=== PATIENT | male | born 1945 | race Caucasian/White ===

== ENCOUNTER 2019-10-21 14:54 | Inpatient (IN) | payer MEDICARE ==
[~2019-10-21] VITALS: Ht 177.8 cm; Wt 98.5 kg
[~2019-10-21 14:54] MED LIST: ALBU0.63 IH; ASPI-556 PO; ATOR10TA69 PO; BENA20TA10 PO; EZET10TA13 PO; HYDR25TA PO; METF-444 PO; METO-391 PO; WARF-57 PO
[2019-10-21] MEDS ORDERED: GLUCAGON 1MG KIT 1 MG ML IM PRN (15:45)
[2019-10-21] MEDS ORDERED: DEXTROSE 50%-WATER 50 ML DISP.SYRIN IV PRN (15:45)
[2019-10-21] MEDS ORDERED: VANCOMYCIN PROTOCOL PER PHARMACY IV SCH (15:45)
[2019-10-21] MEDS ORDERED: ACETAMINOPHEN 325 MG TAB PO PRN (15:45)
[2019-10-21 15:49] LABS: BASOPHILS % (AUTO) 0.2 % (0.0-5.0); EOSINOPHILS % (AUTO) 1.9 % (0.0-8.0); LYMPHOCYTES % (AUTO) 23.3 % (21.0-51.0); MEAN CORPUSCULAR HEMOGLOBIN 27.4 pg (27.0-33.0); MEAN CORPUSCULAR HGB CONC 32.2 g/dL (32.0-36.0); MEAN CORPUSCULAR VOLUME 85.2 fL (79-99); MONOCYTES % (AUTO) 9.6 % (3.0-13.0); NEUTROPHILS % (AUTO) 64.5 % (40.0-77.0); PLATELET COUNT (AUTO) 172 K/uL (130-400); RED BLOOD CELL COUNT(AUTO) 3.17 MIL/uL (4.50-6.20); RED CELL DISTRIBUTION WIDTH 15.5 % (11.0-15.5); WHITE BLOOD COUNT (AUTO) 8.3 K/uL (4.8-10.8)
[2019-10-21] MEDS ORDERED: COMPOUND IV REFRIGERATED 1 EACH IVSOLN MISC PRN (16:00)
[2019-10-21] MEDS ORDERED: VANCOMYCIN 1.5 GM in SODIUM CHLORIDE 0.9% 250 ML IV SCH (16:00)
[2019-10-21 16:19] LABS: CREATININE 1.8 mg/dL (0.5-1.5); POTASSIUM 4.3 mmol/L (3.5-5.1)
[2019-10-21 16:24] LABS: ALBUMIN 2.6 g/dL (3.5-5.0); BILIRUBIN,TOTAL 0.3 mg/dL (0.2-1.0); TOTAL PROTEIN, SERUM 6.1 g/dL (6.0-8.3)
[2019-10-21] MEDS: INSULIN HUMULIN R 100 UNIT/ML 3ML SQ SCH ×2 (16:30→21:00)
[2019-10-21] MEDS ORDERED: PHARMACY COMMUNICATION MISC SCH (16:45)
[2019-10-21] MEDS ORDERED: GENTAMICIN PROTOCOL PER PHARMACY IV SCH (16:45)
[2019-10-21 16:47] LABS: INR 2.41 (0.85-1.15); PARTIAL THROMBOPLASTIN TIME 34.4 SEC (26.3-35.5); PROTHROMBIN TIME 25.2 SEC (9.6-11.6)
--- NOTE | 2019-10-21 17:15 | NUR ---
PT ARRIVED TO UNIT AT 1711. PT IS AAO X3. DENIES ANY PAIN. VITALS STABLE. BED LOCKED AND LOW WITH CALL LIGHT IN REACH WILL CONTINUE TO MONITOR PT.
[2019-10-21 17:20] VITALS: BP 110/43
[2019-10-21] MEDS ORDERED: GENTAMICIN SULFATE 140 MG in SODIUM CHLORIDE 0.9% 100 ML IV SCH (17:30)
[2019-10-21 17:35] LABS: CRP QUANTITATIVE 14.3 mg/L (0.00-9.0)
[2019-10-21] MEDS ORDERED: LEVO500T89 PO (19:03)
[2019-10-21] MEDS ORDERED: AMIO200T6 PO (19:03)
[2019-10-21] MEDS ORDERED: METO50TA18 PO (19:03)
[2019-10-21] MEDS ORDERED: WARF3TAB59 PO (19:04)
--- NOTE | 2019-10-21 19:06 | NUR ---
Spoke with Dr. Dill to clarify, pt is to be NPO after MN, but no orders for surgery. Dr. Dill stated he would see pt later tonight and would give orders for surgical procedure based on MRI results. MRI still pending to be done. No answer when called to MRI dept. Notified Melissa of radiology department who stated MRI is closed for tonight, would need to be ordered as stat. Endorsed to oncoming nurse Amy to contact Dr. Dill if wants to change to stat.
[2019-10-21 20:00] VITALS: BP 105/51
--- NOTE | 2019-10-21 20:10 | NUR ---
CALLED DR HONG VIA CP AND VERIFIED ANTIBIOTIC ORDERS AND ASKED IF MRI OF RT FOOT COULD BE DONE IN AM. NEW ORDERS GIVEN, PLEASE REFER TO CPOE.
--- NOTE | 2019-10-21 20:25 | NUR ---
MOBILE SALES CONSULTANT PAGED KITTY TONY, BUTTONHOLE TACKER FOR HOSPITALIST, VIA ANSWERING SERVICE AND MADE AWARE OF DR HONG'S ORDERS TO [facility] NO. ORDERED OKAY TO [facility] NO INFECTIOUS DISEASE MD WILL SEE PT IN AM.
[2019-10-21] MEDS: AMIODARONE HCL 200 MG TABLET PO SCH (22:09)
[2019-10-21] MEDS: EZETIMIBE 10 MG TAB PO SCH (22:09)
[2019-10-21] MEDS: ATORVASTATIN CALCIUM 20 MG TABLET PO SCH (22:09)
[2019-10-21] MEDS: METOPROLOL TARTRATE 50 MG TAB PO SCH (22:09)
--- NOTE | 2019-10-21 22:10 | NUR ---
MEDS SHIFT ASSESSMENT DONE, PLEASE REFER TO CHART. DUE MEDS ADMINISTERED, TOLERATED WELL. INFORMED THAT MRI WILL BE DONE IN AM. KEPT RESTED AND COMFORTABLE IN BED. CALL LIGHT WITHIN REACH. Addendum: 10/22/19 at 0040 by KAVON JUAREZ RN RN Amended: Links added.
--- NOTE | 2019-10-21 23:00 | NUR ---
MD DR HONG IN TO SEE PT. NEW ORDERS GIVEN. PLEASE REFER TO CPOE. RESOURCE NURSE INFORMED OF SX TO BE SCHEDULED TOMORROW PM PER .
--- NOTE | 2019-10-21 23:10 | NUR ---
WOUND DR HONG IN TO TALK TO PT ABOUT SX TOMORROW. CHANGED DRESSING TO RT FOOT.
[2019-10-22] VITALS (27 sets, daily range): BP systolic 92–138; BP diastolic 43–63
--- NOTE | 2019-10-22 00:10 | NUR ---
CONSENT PT VERBALIZES UNDERSTANDING OF SX TO BE DONE IN AM EXPLAINED BY . PT SIGNED CONSENT FOR SX IN AM, WITNESSED BY HOG COOLER. CONSENT PLACED IN CHART.
--- NOTE | 2019-10-22 02:00 | NUR ---
ROUNDS PT RESTING WELL, FAIRLY ASLEEP. NO DISTRESS NOTED. KEPT RESTED AND COMFORTABLE IN BED. CALL LIGHT WITHIN REACH. WILL MONITOR PT.
--- NOTE | 2019-10-22 03:00 | NUR ---
WOUND PT CLAIMS OF TIGHTNESS ON RT FOOT DRESSING. LOOSENED LINSEY WRAP BY PCP BUT STILL CLAIMS IT IS TIGHT. REMOVED DRESSING. PICTURE OF WOUND TAKEN. DRESSING CHANGED, BETADINE CAST APPLIED DONE BY LAST NIGHT. ELEVATED RT FOOT IN BED.
--- NOTE | 2019-10-22 05:00 | NUR ---
BATHE BED BATH DONE BY PCP. PT TOLERATED ACTIVITY WELL. RE-ITERATED TO BE NPO AFTER BREAKFAST. VERBALIZES UNDERSTANDING. FOR MORE CARE.
[2019-10-22 05:56] LABS: BASOPHILS % (AUTO) 0.3 % (0.0-5.0); EOSINOPHILS % (AUTO) 2.3 % (0.0-8.0); HEMATOCRIT 26.8 % (42-54); LYMPHOCYTES % (AUTO) 27.5 % (21.0-51.0); MEAN CORPUSCULAR HEMOGLOBIN 27.8 pg (27.0-33.0); MEAN CORPUSCULAR HGB CONC 32.8 g/dL (32.0-36.0); MEAN CORPUSCULAR VOLUME 84.5 fL (79-99); MONOCYTES % (AUTO) 9.2 % (3.0-13.0); NEUTROPHILS % (AUTO) 60.2 % (40.0-77.0); PLATELET COUNT (AUTO) 190 K/uL (130-400); RED BLOOD CELL COUNT(AUTO) 3.17 MIL/uL (4.50-6.20); RED CELL DISTRIBUTION WIDTH 15.6 % (11.0-15.5); WHITE BLOOD COUNT (AUTO) 9.1 K/uL (4.8-10.8)
[2019-10-22] MEDS: INSULIN HUMULIN R 100 UNIT/ML 3ML SQ SCH ×4 (05:58→20:46)
[2019-10-22 06:13] LABS: CREATININE 1.7 mg/dL (0.5-1.5)
[2019-10-22 06:20] LABS: INR 2.13 (0.85-1.15); PARTIAL THROMBOPLASTIN TIME 32.2 SEC (26.3-35.5); PROTHROMBIN TIME 22.3 SEC (9.6-11.6)
[2019-10-22] MEDS: AMIODARONE HCL 200 MG TABLET PO SCH ×2 (08:02→19:42)
[2019-10-22] MEDS: FAMOTIDINE 20MG TAB 20 MG TAB PO SCH (08:02)
[2019-10-22] MEDS: METOPROLOL TARTRATE 50 MG TAB PO SCH ×2 (08:02→19:42)
[2019-10-22] MEDS ORDERED: BENAZEPRIL HCL 10 MG TABLET PO SCH (09:00)
[2019-10-22] MEDS ORDERED: ENOXAPARIN SODIUM 30 MG/0.3 ML SQ SCH (09:00)
[2019-10-22 09:27] LABS: % IRON SATURATION 20.3 % (30-44)
[2019-10-22] MEDS ORDERED: GENTAMICIN PROTOCOL PER PHARMACY IV SCH (11:45)
[2019-10-22] MEDS: MEROPENEM 1 GM VIAL IVP SCH ×2 (12:56→22:40)
[2019-10-22] MEDS ORDERED: FENTANYL CITRATE PF 50 MCG/1 ML 2ML VIAL ONE ×2 (15:10→15:45)
[2019-10-22] MEDS ORDERED: MIDAZOLAM HCL 1 MG/ML 2ML VIAL ONE ×2 (15:10→15:45)
[2019-10-22] MEDS ORDERED: LIDOCAINE HCL 1% 20 ML VIAL ONE (15:17)
[2019-10-22] MEDS ORDERED: BUPIVACAINE/PF 0.5% 30ML VIAL ONE (15:17)
[2019-10-22] MEDS ORDERED: EPHEDRINE SULFATE 50 MG/ML AMPULE ONE (16:10)
[2019-10-22] MEDS ORDERED: COMPOUND IV REFRIGERATED 1 EACH IVSOLN MISC PRN (16:30)
[2019-10-22] MEDS ORDERED: SODIUM CHLORIDE 0.9% 1000ML 1,000 ML IV ONE (18:07)
--- NOTE | 2019-10-22 18:20 | NUR ---
PT ARRIVED TO UNIT POST-OP. VITAL SIGNS STABLE. PT DENIES PAIN AT THIS TIME. DRESSING TO RT FOOT DRY AND INTACT. WILL CONTINUE TO MONITOR. BED LOCKED AND LOW, SIDE RAILS X2 WITH CALL LIGHT IN REACH.
[2019-10-22] MEDS: MORPHINE SULFATE 2 MG/ML 1ML SYG IVP PRN ×2 (19:40→23:44)
[2019-10-22] MEDS: GENTAMICIN SULFATE 150 MG in SODIUM CHLORIDE 0.9% 100 ML IV SCH (19:41)
[2019-10-22] MEDS: ATORVASTATIN CALCIUM 20 MG TABLET PO SCH (19:42)
[2019-10-22] MEDS: EZETIMIBE 10 MG TAB PO SCH (19:42)
[2019-10-22] MEDS ORDERED: HYDRALAZINE HCL 20 MG/ML VIAL IV PRN (23:30)
[2019-10-23] MEDS: MORPHINE SULFATE 2 MG/ML 1ML SYG IVP PRN ×4 (02:54→20:18)
[2019-10-23] MEDS ORDERED: HYDROCODONE/ACETAMINOPHEN 5/325 MG TAB PO PRN (03:15)
[2019-10-23] MEDS ORDERED: HYDROMORPHONE 4MG/ML 1ML VIAL IVP PRN (03:15)
[2019-10-23 03:40] VITALS: BP 112/56
[2019-10-23] MEDS: GENTAMICIN SULFATE 150 MG in SODIUM CHLORIDE 0.9% 100 ML IV SCH ×2 (05:24→17:22)
[2019-10-23] MEDS: INSULIN HUMULIN R 100 UNIT/ML 3ML SQ SCH ×4 (05:47→20:22)
--- NOTE | 2019-10-23 06:45 | NUR ---
dressing on right foot has mild blood. changed loosely (kerlex, tape, white wrap)
[2019-10-23 08:02] VITALS: BP 104/59
[2019-10-23 08:44] LABS: BASOPHILS % (AUTO) 0.3 % (0.0-5.0); EOSINOPHILS % (AUTO) 1.7 % (0.0-8.0); HEMATOCRIT 27.3 % (42-54); LYMPHOCYTES % (AUTO) 14.5 % (21.0-51.0); MEAN CORPUSCULAR HEMOGLOBIN 27.1 pg (27.0-33.0); MEAN CORPUSCULAR HGB CONC 31.5 g/dL (32.0-36.0); MEAN CORPUSCULAR VOLUME 86.1 fL (79-99); MONOCYTES % (AUTO) 9.5 % (3.0-13.0); NEUTROPHILS % (AUTO) 73.4 % (40.0-77.0); PLATELET COUNT (AUTO) 190 K/uL (130-400); RED BLOOD CELL COUNT(AUTO) 3.17 MIL/uL (4.50-6.20); RED CELL DISTRIBUTION WIDTH 15.9 % (11.0-15.5); WHITE BLOOD COUNT (AUTO) 11.4 K/uL (4.8-10.8)
[2019-10-23 08:54] LABS: INR 1.84 (0.85-1.15); PARTIAL THROMBOPLASTIN TIME 32.9 SEC (26.3-35.5); PROTHROMBIN TIME 19.4 SEC (9.6-11.6)
[2019-10-23] MEDS: METOPROLOL TARTRATE 50 MG TAB PO SCH ×2 (10:04→20:18)
[2019-10-23] MEDS: AMIODARONE HCL 200 MG TABLET PO SCH ×2 (10:04→20:18)
[2019-10-23] MEDS: FAMOTIDINE 20MG TAB 20 MG TAB PO SCH (10:04)
[2019-10-23 11:38] VITALS: BP 110/65
[2019-10-23] MEDS: MEROPENEM 1 GM VIAL IVP SCH ×2 (11:51→22:58)
--- NOTE | 2019-10-23 13:30 | NUR ---
DCP CM spoke to pt's spouse Helene Hernandez discussed dcp. Pt is independent prior to admission, lives at home w/spouse. Pt has INR machine. Verbalized able to borrow shower chair, walker, wheelchair, cane from the [facility] [place]'re [facility] [place] in [place], [place]. Denies any other equipments/services. Feels safe to go back home, spouse able to assist with transportation and needs as necessary. DC plan to home once stable. CM to cont to follow up. Addendum: 10/23/19 at 1332 by PEGGY PERES LVN CM Amended: Links added.
[2019-10-23 16:51] VITALS: BP 149/75
[2019-10-23] MEDS: WARFARIN SODIUM 1 MG TAB PO SCH (17:11)
[2019-10-23] MEDS ORDERED: GUAIFENESIN-DM 200/20 MG 10 ML PO PRN (19:15)
[2019-10-23] MEDS ORDERED: GUAIFENESIN-CODEINE 5 ML SYRUP ONE (19:28)
[2019-10-23 20:09] VITALS: BP 126/62
[2019-10-23] MEDS: ATORVASTATIN CALCIUM 20 MG TABLET PO SCH (20:17)
[2019-10-23] MEDS: EZETIMIBE 10 MG TAB PO SCH (20:18)
[2019-10-23] MEDS: IPRATROPIUM/ALBUTEROL SULFATE 3 ML SOLUTION IH PRN (21:17)
[2019-10-23 23:40] VITALS: BP 116/71
[2019-10-24 03:37] VITALS: BP 110/63
[2019-10-24] MEDS: GENTAMICIN SULFATE 150 MG in SODIUM CHLORIDE 0.9% 100 ML IV SCH (05:33)
[2019-10-24] MEDS: INSULIN HUMULIN R 100 UNIT/ML 3ML SQ SCH ×4 (05:37→20:26)
[2019-10-24 05:43] LABS: BASOPHILS % (AUTO) 0.3 % (0.0-5.0); EOSINOPHILS % (AUTO) 0.2 % (0.0-8.0); HEMATOCRIT 25.3 % (42-54); LYMPHOCYTES % (AUTO) 16.4 % (21.0-51.0); MEAN CORPUSCULAR HEMOGLOBIN 27.8 pg (27.0-33.0); MEAN CORPUSCULAR HGB CONC 32.8 g/dL (32.0-36.0); MEAN CORPUSCULAR VOLUME 84.6 fL (79-99); MONOCYTES % (AUTO) 10.6 % (3.0-13.0); PLATELET COUNT (AUTO) 200 K/uL (130-400); RED BLOOD CELL COUNT(AUTO) 2.99 MIL/uL (4.50-6.20); RED CELL DISTRIBUTION WIDTH 15.8 % (11.0-15.5); WHITE BLOOD COUNT (AUTO) 12.5 K/uL (4.8-10.8)
[2019-10-24 05:57] LABS: CREATININE 1.7 mg/dL (0.5-1.5); GENTAMICIN,TROUGH 4.4 mcg/mL (0.0-2.0); POTASSIUM 4.6 mmol/L (3.5-5.1)
[2019-10-24 06:01] LABS: B-TYPE NATRIURETIC PEPTIDE 1230 pg/mL (0-100)
[2019-10-24] MEDS: IPRATROPIUM/ALBUTEROL SULFATE 3 ML SOLUTION IH PRN ×2 (06:16→18:23)
--- NOTE | 2019-10-24 06:18 | NUR ---
patient got a duoneb around 20:00 on 10/23/19 and again at 06:00 am today. he has a mild cough with no shortness of breath since he has been in bed all night. he gets short of breath on exertion since he has COPD.
[2019-10-24 07:45] VITALS: BP 90/49
[2019-10-24 08:32] LABS: INR 2.11 (0.85-1.15); PROTHROMBIN TIME 22.1 SEC (9.6-11.6)
[2019-10-24] MEDS: AMIODARONE HCL 200 MG TABLET PO SCH ×2 (08:37→20:22)
[2019-10-24] MEDS: FAMOTIDINE 20MG TAB 20 MG TAB PO SCH (08:39)
[2019-10-24] MEDS: METOPROLOL TARTRATE 50 MG TAB PO SCH ×2 (09:00→20:17)
--- NOTE | 2019-10-24 09:33 | NUR ---
DR. GRANDE AWARE OF CASE RE; RESP FAILURE POST OP AND ON AMIODORONE.
[2019-10-24 10:55] VITALS: BP 94/53
--- NOTE | 2019-10-24 12:00 | NUR ---
DR. JUARES AWARE OF CONSULT RE; F/U ON RLE BYPASS GRAFT.
[2019-10-24] MEDS: MEROPENEM 1 GM VIAL IVP SCH ×2 (13:11→22:34)
--- NOTE | 2019-10-24 14:45 | NUR ---
PATIENT IS ON PROCEDURE- ECHOCARDIOGRAM. will initiate PT Evaluation 10/25/2019. Addendum: 10/24/19 at 1447 by EMY HUTCHINSON, PT PT Amended: Links added.
[2019-10-24 15:48] VITALS: BP 110/59
[2019-10-24] MEDS: GENTAMICIN SULFATE 100 MG in SODIUM CHLORIDE 0.9% 100 ML IV SCH (17:04)
[2019-10-24] MEDS: WARFARIN SODIUM 1 MG TAB PO SCH (17:06)
[2019-10-24 20:10] VITALS: BP 98/59
[2019-10-24] MEDS: ATORVASTATIN CALCIUM 20 MG TABLET PO SCH (20:22)
[2019-10-24] MEDS: EZETIMIBE 10 MG TAB PO SCH (20:22)
[2019-10-24] MEDS: MORPHINE SULFATE 2 MG/ML 1ML SYG IVP PRN (22:34)
[2019-10-25 03:40] LABS: BASOPHILS % (AUTO) 0.2 % (0.0-5.0); EOSINOPHILS % (AUTO) 0.8 % (0.0-8.0); HEMATOCRIT 23.5 % (42-54); LYMPHOCYTES % (AUTO) 18.4 % (21.0-51.0); MEAN CORPUSCULAR HEMOGLOBIN 27.2 pg (27.0-33.0); MEAN CORPUSCULAR HGB CONC 32.3 g/dL (32.0-36.0); MEAN CORPUSCULAR VOLUME 84.2 fL (79-99); MONOCYTES % (AUTO) 11.6 % (3.0-13.0); NEUTROPHILS % (AUTO) 68.5 % (40.0-77.0); PLATELET COUNT (AUTO) 206 K/uL (130-400); RED BLOOD CELL COUNT(AUTO) 2.79 MIL/uL (4.50-6.20); RED CELL DISTRIBUTION WIDTH 15.9 % (11.0-15.5); WHITE BLOOD COUNT (AUTO) 11.1 K/uL (4.8-10.8)
[2019-10-25 03:55] LABS: INR 2.44 (0.85-1.15); PROTHROMBIN TIME 25.5 SEC (9.6-11.6)
[2019-10-25 04:00] VITALS: BP 110/58
[2019-10-25] MEDS: GENTAMICIN SULFATE 100 MG in SODIUM CHLORIDE 0.9% 100 ML IV SCH (04:52)
[2019-10-25 05:40] LABS: CREATININE 1.6 mg/dL (0.5-1.5); POTASSIUM 4.8 mmol/L (3.5-5.1)
[2019-10-25] MEDS: INSULIN HUMULIN R 100 UNIT/ML 3ML SQ SCH ×4 (06:19→20:28)
[2019-10-25] MEDS: IPRATROPIUM/ALBUTEROL SULFATE 3 ML SOLUTION IH PRN ×2 (06:26→18:29)
[2019-10-25] MEDS ORDERED: LACTULOSE 20 GM/30 ML UDCUP PO PRN (08:00)
[2019-10-25] MEDS: DOCUSATE SODIUM 100 MG CAP PO SCH (08:47)
[2019-10-25] MEDS: ASPIRIN 81MG TAB.CHEW PO SCH (08:48)
[2019-10-25] MEDS: METOPROLOL TARTRATE 50 MG TAB PO SCH ×2 (08:48→20:29)
[2019-10-25] MEDS: FAMOTIDINE 20MG TAB 20 MG TAB PO SCH (08:48)
[2019-10-25] MEDS: AMIODARONE HCL 200 MG TABLET PO SCH ×2 (08:48→20:29)
[2019-10-25 09:57] VITALS: BP_SYST 109; BP_SYST 157; BP_DIAS 43; BP_DIAS 85
[2019-10-25 10:38] LABS: INR 2.46 (0.85-1.15); PARTIAL THROMBOPLASTIN TIME 42.6 SEC (26.3-35.5); PROTHROMBIN TIME 25.7 SEC (9.6-11.6)
[2019-10-25 11:52] VITALS: BP 110/55
[2019-10-25] MEDS: MEROPENEM 1 GM VIAL IVP SCH (12:02)
[2019-10-25] MEDS ORDERED: DOCUSATE SODIUM 100 MG CAP PO PRN (12:45)
[2019-10-25] MEDS ORDERED: PHARMACY COMMUNICATION MISC SCH (13:00)
[2019-10-25] MEDS: WARFARIN SODIUM 1 MG TAB PO SCH (18:01)
[2019-10-25 18:14] VITALS: BP_SYST 116; BP_SYST 170; BP_DIAS 60; BP_DIAS 87
[2019-10-25] MEDS: LACTULOSE 20 GM/30 ML UDCUP PO PRN (18:15)
[2019-10-25] MEDS ORDERED: NYSTATIN 15 GM POWDER TP PRN (18:15)
[2019-10-25 20:00] VITALS: BP 109/62
[2019-10-25] MEDS: EZETIMIBE 10 MG TAB PO SCH (20:29)
[2019-10-25] MEDS: ATORVASTATIN CALCIUM 20 MG TABLET PO SCH (20:29)
[2019-10-25] MEDS: NYSTATIN 15 GM POWDER TP SCH ×2 (21:00→23:04)
[2019-10-26] VITALS: BP 128/60
[2019-10-26 03:35] VITALS: BP 107/63
[2019-10-26 05:24] LABS: BASOPHILS % (AUTO) 0.3 % (0.0-5.0); EOSINOPHILS % (AUTO) 1.7 % (0.0-8.0); HEMATOCRIT 26.9 % (42-54); LYMPHOCYTES % (AUTO) 19.5 % (21.0-51.0); MEAN CORPUSCULAR HEMOGLOBIN 27.2 pg (27.0-33.0); MEAN CORPUSCULAR VOLUME 85.1 fL (79-99); MONOCYTES % (AUTO) 8.1 % (3.0-13.0); NEUTROPHILS % (AUTO) 69.8 % (40.0-77.0); PLATELET COUNT (AUTO) 245 K/uL (130-400); RED BLOOD CELL COUNT(AUTO) 3.16 MIL/uL (4.50-6.20); RED CELL DISTRIBUTION WIDTH 15.7 % (11.0-15.5); WHITE BLOOD COUNT (AUTO) 12.7 K/uL (4.8-10.8)
[2019-10-26 05:35] LABS: PARTIAL THROMBOPLASTIN TIME 47.6 SEC (26.3-35.5)
[2019-10-26 05:41] LABS: CHOLESTEROL 87 mg/dL (<200); HDL CHOLESTEROL 39 mg/dL (29-71); LDL DIRECT 46 mg/dL (0-99); TRIGLYCERIDES 67 mg/dL (30-200)
[2019-10-26 05:45] LABS: INR 3.65 (0.85-1.15)
[2019-10-26 05:46] LABS: PROTHROMBIN TIME 37.5 SEC (9.6-11.6)
[2019-10-26] MEDS: INSULIN HUMULIN R 100 UNIT/ML 3ML SQ SCH ×4 (06:01→21:00)
[2019-10-26] MEDS: IPRATROPIUM/ALBUTEROL SULFATE 3 ML SOLUTION IH PRN ×2 (06:27→18:50)
[2019-10-26 08:00] VITALS: BP 116/67
[2019-10-26] MEDS: FAMOTIDINE 20MG TAB 20 MG TAB PO SCH (09:30)
[2019-10-26] MEDS: METOPROLOL TARTRATE 50 MG TAB PO SCH ×2 (09:30→21:03)
[2019-10-26] MEDS: ASPIRIN 81MG TAB.CHEW PO SCH (09:31)
[2019-10-26] MEDS: DOCUSATE SODIUM 100 MG CAP PO SCH (09:31)
[2019-10-26] MEDS: AMIODARONE HCL 200 MG TABLET PO SCH ×2 (09:31→21:03)
[2019-10-26] MEDS: NYSTATIN 15 GM POWDER TP SCH ×2 (09:31→21:02)
[2019-10-26 11:00] VITALS: BP 99/58
--- NOTE | 2019-10-26 14:21 | NUR ---
HAD NOTIFIED DR WHELAN ON INR 3.65 TO CONFIRM HIS ORDER OF COUMADIN 1.5MG X 1 DOSE TODAY . PER MD IT IS OK TO GIVE 1.5MG FOR TODAY
--- NOTE | 2019-10-26 14:50 | NUR ---
FORM FOR ANTIBIOTIC APPROVAL SIGNED BY [employer] SENT TO PHARMACY AND RECEIVED .PER JELENA WORKING ON MEDICATION
[2019-10-26] MEDS: LACTULOSE 20 GM/30 ML UDCUP PO PRN (15:34)
[2019-10-26] MEDS ORDERED: COMPOUND IV REFRIGERATED 1 EACH IVSOLN MISC PRN (15:45)
--- NOTE | 2019-10-26 16:51 | NUR ---
NOTIFIED DR CEVALLOS PER PHARMACY [facility] HE HAS ZERBAXA 3GMS FOR TODAY BUT IF OK WITH HIM TO HAVE 1.5GMS 3 TIMES A DAY INSTEAD OF 3MG . PER MD MABRY ,ON EMAR PROFILED 1.5GM ALREADY .
[2019-10-26] MEDS ORDERED: WARFARIN SODIUM 1 MG TAB PO SCH (17:00)
[2019-10-26] MEDS ORDERED: CEFTOLOZANE/TAZOBACTAM 1.5 GM in SODIUM CHLORIDE 0.9% 100 ML IVPB SCH (18:00)
[2019-10-26] MEDS ORDERED: PHARMACY COMMUNICATION MISC SCH (19:45)
--- NOTE | 2019-10-26 19:47 | NUR ---
NOTIFIED DR HONG ON COUMADIN GIVEN AND INR AT 3.65 TODAY . PER MD OK TO PROCEED WITH SURGERY
[2019-10-26 20:00] VITALS: BP 121/66
[2019-10-26] MEDS: ATORVASTATIN CALCIUM 20 MG TABLET PO SCH (21:03)
[2019-10-26] MEDS: EZETIMIBE 10 MG TAB PO SCH (21:03)
[2019-10-27] VITALS (27 sets, daily range): BP systolic 99–129; BP diastolic 50–71
[2019-10-27] MEDS ORDERED: ALBU8.5H8 IH (00:05)
[2019-10-27] MEDS ORDERED: FLUT1BLS3 IH (00:05)
[2019-10-27] MEDS: CEFTOLOZANE/TAZOBACTAM 1.5 GM in SODIUM CHLORIDE 0.9% 100 ML IVPB SCH ×3 (01:53→16:46)
[2019-10-27] MEDS ORDERED: SODIUM CHLORIDE 0.9% IVPB SCH (02:00)
[2019-10-27] MEDS ORDERED: CEFTOLOZANE IVPB SCH (02:00)
[2019-10-27] MEDS ORDERED: TAZOBACTAM IVPB SCH (02:00)
[2019-10-27 05:24] LABS: HEMATOCRIT 24.4 % (42-54); MEAN CORPUSCULAR HEMOGLOBIN 26.6 pg (27.0-33.0); MEAN CORPUSCULAR HGB CONC 30.7 g/dL (32.0-36.0); MEAN CORPUSCULAR VOLUME 86.5 fL (79-99); PLATELET COUNT (AUTO) 234 K/uL (130-400); RED BLOOD CELL COUNT(AUTO) 2.82 MIL/uL (4.50-6.20); RED CELL DISTRIBUTION WIDTH 15.7 % (11.0-15.5); WHITE BLOOD COUNT (AUTO) 9.6 K/uL (4.8-10.8)
[2019-10-27 05:38] LABS: PARTIAL THROMBOPLASTIN TIME 46.7 SEC (26.3-35.5)
[2019-10-27 05:54] LABS: INR 4.25 (0.85-1.15); PROTHROMBIN TIME 43.4 SEC (9.6-11.6)
[2019-10-27] MEDS: INSULIN HUMULIN R 100 UNIT/ML 3ML SQ SCH (06:00)
--- NOTE | 2019-10-27 06:33 | NUR ---
0555: Received a call from [facility]. stated the patient PT/PTT/INR elevated at 43.4/46.7/4.25. 0558: I paged the hospitalize monkey breeder, awaited for return call. 0616: I repaged hospitalize again through the answering service. 0632: returned the call, informed her of patient elevated levels mentioned above. Also informed patient is schedule for surgery this morning at 0800 and patient's H/H dropped to 7.5/24.4. Orders received for repeat lab of H/H and PT/PTT/INR stat. Patient made aware, verbalized understanding.
[2019-10-27] MEDS: IPRATROPIUM/ALBUTEROL SULFATE 3 ML SOLUTION IH PRN ×2 (06:36→18:18)
[2019-10-27 06:42] LABS: HEMATOCRIT 26.2 % (42-54)
[2019-10-27 07:25] LABS: PARTIAL THROMBOPLASTIN TIME 47.7 SEC (26.3-35.5)
[2019-10-27] MEDS ORDERED: BUPIVACAINE/PF 0.5% 10ML VIAL ONE (07:53)
[2019-10-27] MEDS ORDERED: LIDOCAINE HCL 1% 20 ML VIAL ONE (07:53)
[2019-10-27 07:59] LABS: INR 4.01 (0.85-1.15); PROTHROMBIN TIME 41.1 SEC (9.6-11.6)
[2019-10-27] MEDS ORDERED: MIDAZOLAM HCL 1 MG/ML 2ML VIAL ONE (08:13)
[2019-10-27] MEDS ORDERED: FENTANYL CITRATE PF 50 MCG/1 ML 2ML VIAL ONE ×3 (08:16→08:44)
[2019-10-27] MEDS ORDERED: EPHEDRINE SULFATE 50 MG/ML AMPULE ONE (08:24)
[2019-10-27] MEDS ORDERED: SODIUM CHLORIDE 0.9% 1000ML 1,000 ML IV ONE (09:57)
[2019-10-27 10:56] LABS: MEAN CORPUSCULAR HEMOGLOBIN 26.6 pg (27.0-33.0); MEAN CORPUSCULAR HGB CONC 31.3 g/dL (32.0-36.0); MEAN CORPUSCULAR VOLUME 85.1 fL (79-99); RED BLOOD CELL COUNT(AUTO) 2.82 MIL/uL (4.50-6.20); RED CELL DISTRIBUTION WIDTH 15.5 % (11.0-15.5); WHITE BLOOD COUNT (AUTO) 9.4 K/uL (4.8-10.8)
[2019-10-27] MEDS: NYSTATIN 15 GM POWDER TP SCH ×2 (11:06→21:00)
[2019-10-27] MEDS: ASPIRIN 81MG TAB.CHEW PO SCH (11:07)
[2019-10-27] MEDS: DOCUSATE SODIUM 100 MG CAP PO SCH (11:07)
[2019-10-27] MEDS: METOPROLOL TARTRATE 50 MG TAB PO SCH ×2 (11:07→21:12)
[2019-10-27] MEDS: FAMOTIDINE 20MG TAB 20 MG TAB PO SCH (11:07)
[2019-10-27] MEDS: AMIODARONE HCL 200 MG TABLET PO SCH ×2 (11:08→21:12)
[2019-10-27] MEDS: LACTULOSE 20 GM/30 ML UDCUP PO PRN (15:41)
[2019-10-27] MEDS: ATORVASTATIN CALCIUM 20 MG TABLET PO SCH (21:12)
[2019-10-27] MEDS: EZETIMIBE 10 MG TAB PO SCH (21:15)
[2019-10-28] MEDS: CEFTOLOZANE/TAZOBACTAM 1.5 GM in SODIUM CHLORIDE 0.9% 100 ML IVPB SCH ×3 (01:16→18:26)
[2019-10-28] MEDS: LACTULOSE 20 GM/30 ML UDCUP PO PRN (03:41)
[2019-10-28 04:06] VITALS: BP 131/69
[2019-10-28] MEDS: INSULIN HUMULIN R 100 UNIT/ML 3ML SQ SCH (04:56)
[2019-10-28 05:51] LABS: PARTIAL THROMBOPLASTIN TIME 50.5 SEC (26.3-35.5)
[2019-10-28] MEDS: IPRATROPIUM/ALBUTEROL SULFATE 3 ML SOLUTION IH PRN ×2 (06:25→18:33)
[2019-10-28 06:41] LABS: PROTHROMBIN TIME 48.1 SEC (9.6-11.6)
[2019-10-28 06:42] LABS: INR 4.73 (0.85-1.15)
[2019-10-28 07:46] VITALS: BP 122/69
--- NOTE | 2019-10-28 08:20 | NUR ---
IZABELA-LIZ AWARE OF INR 4.73 STATES I WILL HOLD IT.
--- NOTE | 2019-10-28 08:50 | NUR ---
DR. CEVALLOS AND DR. HONG AWARE PT REFUSING SOLARA. STATES WILL TALK TO PATIENT LATER TODAY.
[2019-10-28] MEDS: ASPIRIN 81MG TAB.CHEW PO SCH (09:43)
[2019-10-28] MEDS: DOCUSATE SODIUM 100 MG CAP PO SCH (09:43)
[2019-10-28] MEDS: FAMOTIDINE 20MG TAB 20 MG TAB PO SCH (09:43)
[2019-10-28] MEDS: METOPROLOL TARTRATE 50 MG TAB PO SCH ×2 (09:44→22:08)
[2019-10-28] MEDS: AMIODARONE HCL 200 MG TABLET PO SCH ×2 (09:44→22:08)
[2019-10-28] MEDS: NYSTATIN 15 GM POWDER TP SCH ×2 (09:45→22:09)
[2019-10-28 11:12] VITALS: BP 108/54
--- NOTE | 2019-10-28 14:20 | NUR ---
CM Note: [facility] pending approval, [facility] pending approval and delivery, [facility] pending approval and delivery CM met with pt discussed MD recommendations. Pt only agreeable for home w/HH, [facility] signed for [facility]/any DME company that will approve, [facility]/any pharmacy that will approve, [facility]/any HH that will approve. CM faxed order, [facility] infusion and [facility], confirmation received. Pt pending approval for HH and abx. CM filled out [facility] form, flagged in chart, Dr Dill pending to sign MD made aware flagged in chart along w/HH order, primary nurse pending to fill out wound measurements. Augustus THIBODEAUX aware. CM to cont to follow up.
[2019-10-28 15:39] VITALS: BP 130/58
--- NOTE | 2019-10-28 15:41 | NUR ---
NUTRITION EDUCATION Pt contacted via Phone. Pt refusal of Coumadin and Diabetes nutrition education, secondary to received in past. Pt overtly disinterested. DAVID encouraged Pt to notify as concerns arise. Addendum: 10/28/19 at [address] Amended: Links added.
--- NOTE | 2019-10-28 15:54 | NUR ---
DAVID SCREEN - LOS X 7 Pt admitted with Infected diabetic foot. Pt is s/p amputation with debridement and wound VAC. Pt contacted via phone and reports dislikes all food and unwilling to review food preferences. However, Pt was overheard talking on phone that he did consume a ham sandwich this afternoon. Pt also refusing nutritional supplements. Pt tolerating foods with no report of GI distress. Pt refusal of nutrition education as well. RD encouraged pt to notify if any concerns arise. Recommend continue diet order. Pt refusal of nutrition education. RD to continue to monitor. Please notify as nutrition concerns arise. Thank you. Addendum: 10/28/19 at [address] Amended: Links added.
--- NOTE | 2019-10-28 17:40 | NUR ---
CM Note: [facility] not in network CM spoke to Jose Guadalupe [facility]cgar[facility], verbalized they are not in network w/pt's current insurance. Will try [facility] in AM. CM to cont to follow up.
[2019-10-28 20:03] VITALS: BP 140/78
--- NOTE | 2019-10-28 20:30 | NUR ---
MD Dr HONG came to fill out Wound Vac paperworks.
[2019-10-28] MEDS: ATORVASTATIN CALCIUM 20 MG TABLET PO SCH (22:08)
[2019-10-28] MEDS: EZETIMIBE 10 MG TAB PO SCH (22:08)
[2019-10-28 23:36] VITALS: BP 128/62
[2019-10-29] MEDS: CEFTOLOZANE/TAZOBACTAM 1.5 GM in SODIUM CHLORIDE 0.9% 100 ML IVPB SCH ×3 (00:41→17:59)
[2019-10-29 03:51] VITALS: BP 125/59
[2019-10-29] MEDS: INSULIN HUMULIN R 100 UNIT/ML 3ML SQ SCH (05:30)
[2019-10-29 06:27] LABS: INR 3.43 (0.85-1.15); PARTIAL THROMBOPLASTIN TIME 33.9 SEC (26.3-35.5)
[2019-10-29 06:28] LABS: BASOPHILS % (AUTO) 0.4 % (0.0-5.0); EOSINOPHILS % (AUTO) 1.2 % (0.0-8.0); HEMATOCRIT 23.3 % (42-54); LYMPHOCYTES % (AUTO) 18.7 % (21.0-51.0); MEAN CORPUSCULAR HEMOGLOBIN 27.5 pg (27.0-33.0); MEAN CORPUSCULAR VOLUME 83.2 fL (79-99); NEUTROPHILS % (AUTO) 70.3 % (40.0-77.0); PLATELET COUNT (AUTO) 256 K/uL (130-400); RED CELL DISTRIBUTION WIDTH 15.3 % (11.0-15.5); WHITE BLOOD COUNT (AUTO) 9.7 K/uL (4.8-10.8)
[2019-10-29 06:30] LABS: PROTHROMBIN TIME 35.3 SEC (9.6-11.6)
[2019-10-29] MEDS: IPRATROPIUM/ALBUTEROL SULFATE 3 ML SOLUTION IH PRN ×2 (06:43→18:53)
[2019-10-29 06:44] LABS: ALBUMIN 2.1 g/dL (3.5-5.0); BILIRUBIN,TOTAL 0.6 mg/dL (0.2-1.0); CREATININE 1.4 mg/dL (0.5-1.5); POTASSIUM 4.5 mmol/L (3.5-5.1); TOTAL PROTEIN, SERUM 5.8 g/dL (6.0-8.3)
[2019-10-29 07:36] VITALS: BP 110/62
[2019-10-29] MEDS: NYSTATIN 15 GM POWDER TP SCH ×2 (09:00→20:47)
[2019-10-29] MEDS: FAMOTIDINE 20MG TAB 20 MG TAB PO SCH (09:37)
[2019-10-29] MEDS: DOCUSATE SODIUM 100 MG CAP PO SCH (09:38)
[2019-10-29] MEDS: ASPIRIN 81MG TAB.CHEW PO SCH (09:38)
[2019-10-29] MEDS: AMIODARONE HCL 200 MG TABLET PO SCH ×2 (09:38→20:46)
[2019-10-29] MEDS: METOPROLOL TARTRATE 50 MG TAB PO SCH ×2 (09:38→20:46)
[2019-10-29 11:06] VITALS: BP 110/56
[2019-10-29 15:37] VITALS: BP 123/69
--- NOTE | 2019-10-29 17:34 | NUR ---
CM NOTE/CHANGE IN DC PLAN TO [facility] PER PATIENT, DOES NOT FEEL SAFE TO BE DISCHARGED HOME SINCE HE IS NOT ABLE TO AMBULATE WITH WALKER TO BATHROOM WITH NON WEIGHT BEARING STATUS TO OPERATED FOOT. NEW REFERRAL FOR [facility], [facility] FILLED. PENDING TO FAX CLINICAL PACKET, CM TO FOLLOW UP.
[2019-10-29] MEDS: WARFARIN SODIUM 1 MG TAB PO SCH (18:01)
[2019-10-29 20:00] VITALS: BP 146/79
[2019-10-29] MEDS: EZETIMIBE 10 MG TAB PO SCH (20:47)
[2019-10-29] MEDS: ATORVASTATIN CALCIUM 20 MG TABLET PO SCH (20:47)
--- NOTE | 2019-10-29 21:30 | NUR ---
MOOD Pt in a happier mood tonight,he's talking and conversing with the staff.
[2019-10-29 23:03] VITALS: BP 115/44
[2019-10-30] MEDS: CEFTOLOZANE/TAZOBACTAM 1.5 GM in SODIUM CHLORIDE 0.9% 100 ML IVPB SCH ×3 (01:08→17:46)
[2019-10-30 03:03] VITALS: BP 105/45
[2019-10-30] MEDS: INSULIN HUMULIN R 100 UNIT/ML 3ML SQ SCH (05:53)
[2019-10-30 06:13] LABS: BASOPHILS % (AUTO) 0.3 % (0.0-5.0); EOSINOPHILS % (AUTO) 1.8 % (0.0-8.0); LYMPHOCYTES % (AUTO) 25.9 % (21.0-51.0); MEAN CORPUSCULAR HEMOGLOBIN 26.3 pg (27.0-33.0); MEAN CORPUSCULAR HGB CONC 31.7 g/dL (32.0-36.0); MEAN CORPUSCULAR VOLUME 82.7 fL (79-99); MONOCYTES % (AUTO) 9.7 % (3.0-13.0); NEUTROPHILS % (AUTO) 61.7 % (40.0-77.0); PLATELET COUNT (AUTO) 276 K/uL (130-400); RED BLOOD CELL COUNT(AUTO) 2.78 MIL/uL (4.50-6.20); RED CELL DISTRIBUTION WIDTH 15.3 % (11.0-15.5)
[2019-10-30 06:33] LABS: INR 2.57 (0.85-1.15); PROTHROMBIN TIME 26.8 SEC (9.6-11.6)
[2019-10-30 06:39] LABS: ALBUMIN 2.1 g/dL (3.5-5.0); BILIRUBIN,TOTAL 0.5 mg/dL (0.2-1.0); CREATININE 1.6 mg/dL (0.5-1.5); POTASSIUM 4.3 mmol/L (3.5-5.1)
[2019-10-30] MEDS: IPRATROPIUM/ALBUTEROL SULFATE 3 ML SOLUTION IH PRN ×2 (06:52→18:14)
--- NOTE | 2019-10-30 07:54 | NUR ---
DR. WHELAN IN TO SE PT. ORDERS GIVEN AND ENTERED.
[2019-10-30 08:00] VITALS: BP 149/50
[2019-10-30] MEDS ORDERED: WARFARIN SODIUM 1 MG TAB PO SCH ×3 (08:00→16:00)
[2019-10-30] MEDS: DOCUSATE SODIUM 100 MG CAP PO SCH (10:10)
[2019-10-30] MEDS: AMIODARONE HCL 200 MG TABLET PO SCH ×2 (10:10→20:27)
[2019-10-30] MEDS: FAMOTIDINE 20MG TAB 20 MG TAB PO SCH (10:10)
[2019-10-30] MEDS: ASPIRIN 81MG TAB.CHEW PO SCH (10:10)
[2019-10-30] MEDS: FOLIC ACID 1 MG TABLET PO SCH (10:10)
[2019-10-30] MEDS: CYANOCOBALAMIN (VITAMIN B-12) 1,000 MCG TABLET PO SCH (10:10)
[2019-10-30] MEDS: NYSTATIN 15 GM POWDER TP SCH ×2 (10:11→20:27)
[2019-10-30] MEDS: METOPROLOL TARTRATE 50 MG TAB PO SCH ×2 (10:11→20:27)
--- NOTE | 2019-10-30 11:00 | NUR ---
CM NOTE/[facility] NEW REFERRAL FOR [facility], CLINICAL PACKET FAXED AND RECEIVED PER SNADY. PENDING AUTHORIZATION.
[2019-10-30 12:00] VITALS: BP 113/50
--- NOTE | 2019-10-30 12:58 | NUR ---
DR. CEVALLOS IN TO SEE PT.NO NEW ORDERS.
[2019-10-30 16:00] VITALS: BP 112/58
[2019-10-30] MEDS: WARFARIN SODIUM 1 MG TAB PO SCH (16:00)
--- NOTE | 2019-10-30 17:00 | NUR ---
WOUND VAC RT. FOOT CHANGED, PICTURES TAKEN.
[2019-10-30 19:40] VITALS: BP 141/66
[2019-10-30 20:00] VITALS: BP 141/66
[2019-10-30] MEDS: ATORVASTATIN CALCIUM 20 MG TABLET PO SCH (20:27)
[2019-10-30] MEDS: EZETIMIBE 10 MG TAB PO SCH (20:27)
[2019-10-31] VITALS: BP 143/41
[2019-10-31] MEDS: CEFTOLOZANE/TAZOBACTAM 1.5 GM in SODIUM CHLORIDE 0.9% 100 ML IVPB SCH ×2 (01:07→10:00)
[2019-10-31 04:07] LABS: BASOPHILS % (AUTO) 0.5 % (0.0-5.0); EOSINOPHILS % (AUTO) 2.1 % (0.0-8.0); HEMATOCRIT 24.3 % (42-54); MEAN CORPUSCULAR HEMOGLOBIN 26.6 pg (27.0-33.0); MEAN CORPUSCULAR HGB CONC 31.7 g/dL (32.0-36.0); MEAN CORPUSCULAR VOLUME 83.8 fL (79-99); NEUTROPHILS % (AUTO) 62.9 % (40.0-77.0); PLATELET COUNT (AUTO) 302 K/uL (130-400); RED CELL DISTRIBUTION WIDTH 15.3 % (11.0-15.5); WHITE BLOOD COUNT (AUTO) 10.9 K/uL (4.8-10.8)
[2019-10-31 04:37] LABS: ALBUMIN 2.1 g/dL (3.5-5.0); BILIRUBIN,TOTAL 0.5 mg/dL (0.2-1.0); CREATININE 1.6 mg/dL (0.5-1.5); POTASSIUM 4.5 mmol/L (3.5-5.1)
[2019-10-31 04:53] VITALS: BP 138/66
--- NOTE | 2019-10-31 06:41 | NUR ---
came by informed of the D-Dimer results 860, also let him know the venous Doppler and VQ scan was low probability of PE. I received orders for discharge home, TSH,PSA,LDH,Serum ferritin labs before discharge. Patient aware of orders, doctor in the room when he doctor gave the orders.
[2019-10-31] MEDS: IPRATROPIUM/ALBUTEROL SULFATE 3 ML SOLUTION IH PRN (06:47)
[2019-10-31 07:30] VITALS: BP 131/59
[2019-10-31] MEDS: FAMOTIDINE 20MG TAB 20 MG TAB PO SCH (09:58)
[2019-10-31] MEDS: CYANOCOBALAMIN (VITAMIN B-12) 1,000 MCG TABLET PO SCH (09:59)
[2019-10-31] MEDS: AMIODARONE HCL 200 MG TABLET PO SCH (09:59)
[2019-10-31] MEDS: ASPIRIN 81MG TAB.CHEW PO SCH (09:59)
[2019-10-31] MEDS: DOCUSATE SODIUM 100 MG CAP PO SCH (09:59)
[2019-10-31] MEDS: METOPROLOL TARTRATE 50 MG TAB PO SCH (10:00)
[2019-10-31] MEDS: FOLIC ACID 1 MG TABLET PO SCH (10:01)
--- NOTE | 2019-10-31 10:24 | NUR ---
CM NOTE/REHAB APPROVED PER SANDY AT [facility], AUTHORIZATION RECEIVED. PATIENT TO TRANSFER VIA PRIVATE VEHICLE. PRIMARY NURSE, POPEYE THIBODEAUX, MADE AWARE.
[2019-10-31 11:00] VITALS: BP 116/57
[2019-10-31 16:00] VITALS: BP 113/61
[2019-10-31] MEDS: WARFARIN SODIUM 1 MG TAB PO SCH (17:38)
--- NOTE | 2019-10-31 18:00 | NUR ---
DISCHARGED USING TEACH BACK. HEART MONITOR REMOVED, SALINE LOCK LEFT IN PLACE PER REQUEST OF RECEIVING NURSE HE WILL CONTINUE ON IV ABX.SPOUSE PROVIDING TRANSPORTATION. COPY OF CHART SENT.WOUND VAC REMOVED BUT LEFT IN PLACE DRESSING SO WOUND VAC CAN EASILY BE ATTACHED.
--- NOTE | 2019-10-31 18:08 | NUR ---
REPORT CALLED IN TO [facility], SPOKE TO HALLIE LBERON RN.
== END 2019-10-31 18:15 | DRG 501 ==
LOC: EDH 14:54 → EDHIP 14:55 → 3AH 17:11
PROVIDERS: ADMIT Internal Medicine; ATTEND Internal Medicine
PROC: 0QBN0ZZ Excision of Right Metatarsal, Open Approach (ICD-10-PCS; principal; 2019-10-22 15:25)
PROC: 0LBV0ZZ Excision of Right Foot Tendon, Open Approach (ICD-10-PCS; 2019-10-27 08:10)
DX: T87.81 Dehiscence of amputation stump (principal); D68.59 Other primary thrombophilia; E11.52 Type 2 diabetes mellitus with diabetic peripheral angiopathy with gangrene; L03.115 Cellulitis of right lower limb; Z16.24 Resistance to multiple antibiotics; D68.51 Activated protein C resistance; J81.1 Chronic pulmonary edema; M86.8X7 Other osteomyelitis, ankle and foot; T87.43 Infection of amputation stump, right lower extremity; B96.5 Pseudomonas (aeruginosa) (mallei) (pseudomallei) as the cause of diseases classified elsewhere; N18.3 Chronic kidney disease, stage 3 (moderate); I12.9 Hypertensive chronic kidney disease with stage 1 through stage 4 chronic kidney disease, or unspecified chronic kidney disease; E11.69 Type 2 diabetes mellitus with other specified complication; L97.519 Non-pressure chronic ulcer of other part of right foot with unspecified severity; D63.8 Anemia in other chronic diseases classified elsewhere; E11.22 Type 2 diabetes mellitus with diabetic chronic kidney disease; E11.621 Type 2 diabetes mellitus with foot ulcer; E11.622 Type 2 diabetes mellitus with other skin ulcer; E78.00 Pure hypercholesterolemia, unspecified; E78.5 Hyperlipidemia, unspecified; E87.70 Fluid overload, unspecified; I25.10 Atherosclerotic heart disease of native coronary artery without angina pectoris; I35.0 Nonrheumatic aortic (valve) stenosis; I48.91 Unspecified atrial fibrillation; J44.9 Chronic obstructive pulmonary disease, unspecified; Y83.5 Amputation of limb(s) as the cause of abnormal reaction of the patient, or of later complication, without mention of misadventure at the time of the procedure; Y92.89 Other specified places as the place of occurrence of the external cause; Z79.01 Long term (current) use of anticoagulants; Z79.02 Long term (current) use of antithrombotics/antiplatelets; Z79.899 Other long term (current) drug therapy; Z98.61 Coronary angioplasty status; Z95.1 Presence of aortocoronary bypass graft; Z89.439 Acquired absence of unspecified foot; Z87.891 Personal history of nicotine dependence; Z86.718 Personal history of other venous thrombosis and embolism; Z80.0 Family history of malignant neoplasm of digestive organs
CPT/HCPCS: 36415; 71045; 73630; 73718; 80048; 80053; 80061; 80170; 82728; 82948; 83540; 83550; 83735; 83880; 84145; 85014; 85018; 85025; 85027; 85610; 85651; 85730; 86140; 87070; 87076; 87077; 87186; 87205; 88304; 88311; 93005; 93306; 93356; 93926; 94640; 94664; 97039; G0378; J1580; J2185; J2250; J3010; J3370; J3490; J7030; J7050